=== PATIENT | female | born 1955 | race Caucasian/White ===

== ENCOUNTER 2016-11-10 23:32 | Emergency (ER) | payer OTHER ==
[~2016-11-10] VITALS: Ht 165.1 cm; Wt 68.0 kg
[2016-11-11] MEDS ORDERED: diphenhydrAMINE 50 MG CAPSULE PO ONE (01:15)
[2016-11-11] MEDS ORDERED: diphenhydrAMINE 50 MG CAPSULE ONE (01:18)
--- NOTE | 2016-11-11 01:18 | NUR ---
Patient discharged to home in stable conditon. Written and verbal after care instructions given. Patient verbalizes understanding of instructions.
== END 2016-11-11 01:18 | disposition home or self-care (01) ==
LOC: ER 23:33
DX: S40.862A Insect bite (nonvenomous) of left upper arm, initial encounter (principal); S30.861A Insect bite (nonvenomous) of abdominal wall, initial encounter; F10.20 Alcohol dependence, uncomplicated; F41.9 Anxiety disorder, unspecified; F32.9 Major depressive disorder, single episode, unspecified; E78.5 Hyperlipidemia, unspecified; Z88.0 Allergy status to penicillin; Z88.8 Allergy status to other drugs, medicaments and biological substances; W57.XXXA Bitten or stung by nonvenomous insect and other nonvenomous arthropods, initial encounter; Y93.89 Activity, other specified; Y92.89 Other specified places as the place of occurrence of the external cause; Y99.8 Other external cause status
CPT/HCPCS: A4663; Q0163

== ENCOUNTER 2017-07-16 20:04 | Emergency (ER) | payer OTHER, MEDICAID ==
[~2017-07-16] VITALS: Ht 162.6 cm; Wt 70.8 kg
--- NOTE | 2017-07-16 20:24 | NUR ---
Patient ambulated to ER with c/o headache, reports feeling it at the top of her head more, random occurence. Pt states sometimes she is anxious, and she would feel headache and sometimes pain on the neck. Denies chest pain, dizziness, nausea, vomiting.
--- NOTE | 2017-07-16 20:35 | NUR ---
Dr. Henry at bedside for MSE.
[2017-07-16 21:06] LABS: *BILIRUBIN,URIN NEGATIVE (NEGATIVE); *BLOOD, URINE NEGATIVE (NEGATIVE); *CLARITY,URINE CLEAR (CLEAR); *KETONES,URINE NEGATIVE (NEGATIVE); *PROTEIN,URINE NEGATIVE (NEGATIVE); *UROBILINOGEN,URINE 0.2 E.U./dl (NORMAL); LEUKOCYTE ESTERASE ,URINE NEGATIVE (NEGATIVE); NITRITE, URINE NEGATIVE (NEGATIVE); PH,URINE 6.5 (5.0-8.0); UGLUCOSE NEGATIVE (NEGATIVE)
[2017-07-16 21:08] LABS: BASOPHILS # (AUTO) 0.1 K/uL (0.0-8.0); BASOPHILS % (AUTO) 0.9 % (0.0-2.0); EOSINOPHILS # (AUTO) 0.1 K/uL (0.0-0.7); EOSINOPHILS % (AUTO) 0.8 % (0.0-7.0); HEMATOCRIT 43.8 % (31.2-41.9); HEMOGLOBIN 14.9 g/dL (10.9-14.3); LYMPHOCYTES # (AUTO) 3.3 K/uL (20.0-40.0); LYMPHOCYTES % (AUTO) 43.5 % (20.5-51.5); MEAN CORPUSCULAR HEMOGLOBIN 28.9 uug (24.7-32.8); MEAN CORPUSCULAR HGB CONC 34 g/dL (32.3-35.6); MONOCYTES # (AUTO) 0.6 K/uL (2.0-10.0); MONOCYTES % (AUTO) 8.1 % (0.0-11.0); NEUTROPHILS # (AUTO) 3.5 K/uL (1.8-8.9); NEUTROPHILS % (AUTO) 46.7 % (38.5-71.5); PLATELET COUNT (AUTO) 307 K/uL (179-408); RED BLOOD CELL COUNT(AUTO) 5.16 MIL/uL (3.63-4.92); WHITE BLOOD COUNT (AUTO) 7.5 K/uL (3.8-11.8)
--- NOTE | 2017-07-16 21:13 | NUR ---
Patient out of ER for CT via gurney.
[2017-07-16 21:15] LABS: CREATININE 0.8 mg/dL (0.6-1.3)
[2017-07-16 21:20] LABS: *COLOR,URINE STRAW (YELLOW)
[2017-07-16 21:21] LABS: WBC,URINE NONE SEEN /HPF (0-3)
--- NOTE | 2017-07-16 21:22 | NUR ---
Patient back to ER from [place] via [facility].
[2017-07-16 21:27] LABS: BILIRUBIN,DIRECT 0.1 mg/dL (0.0-0.2); BILIRUBIN,TOTAL 0.6 mg/dL (0.2-1.0); TOTAL PROTEIN, SERUM 7.9 g/dL (6.4-8.2)
--- NOTE | 2017-07-16 22:13 | NUR ---
Patient discharged to home in stable conditon. Written and verbal after care instructions given. Patient verbalizes understanding of instructions. Patient ambulated out of ER with steady gait, no acute signs of distress, VSS, all belongings taken.
[2017-07-16 22:16] VITALS: BP 134/74
== END 2017-07-16 22:17 | disposition home or self-care (01) ==
LOC: ER 20:04
DX: R51 Headache (principal); E78.5 Hyperlipidemia, unspecified; Z88.0 Allergy status to penicillin; Z88.8 Allergy status to other drugs, medicaments and biological substances; Z91.048 Other nonmedicinal substance allergy status
CPT/HCPCS: 36415; 70030-TC; 70450; 71045; 85025; 85730; 93005; A4663

== ENCOUNTER 2018-04-11 00:19 | Emergency (ER) | payer MEDICAID, OTHER ==
[~2018-04-11] VITALS: Ht 165.1 cm; Wt 68.0 kg
--- NOTE | 2018-04-11 00:36 | NUR ---
Pt. ambulated into ED w/ w/ LLQ abdominal pain, nausea, diarrhea x 6 today, states she went to her Dr. last week and was prescriped Ciprofloxacin for gastroenteritis but was unable to tolerate medication, A/Ox4, denies CP/MCKNIGHT/F/SOB,
[2018-04-11] MEDS ORDERED: DIPHENOXYLATE HCL/ATROP SULF TABLET PO ONE (00:45)
[2018-04-11] MEDS ORDERED: DICYCLOMINE HCL 10 MG/5 ML UDC LIQ PO ONE (00:45)
[2018-04-11] MEDS ORDERED: ONDANSETRON ODT 4 MG TAB.RAPDIS SL ONE (00:45)
[2018-04-11] MEDS ORDERED: ONDANSETRON HCL 4 MG TABLET ONE (00:52)
[2018-04-11] MEDS ORDERED: DIPHENOXYLATE HCL/ATROP SULF TABLET ONE (00:52)
[2018-04-11] MEDS ORDERED: DICYCLOMINE HCL 10 MG/5 ML UDC LIQ ONE (00:52)
[2018-04-11] MEDS ORDERED: ONDANSETRON ODT 4 MG TAB.RAPDIS ONE (00:55)
--- NOTE | 2018-04-11 02:05 | NUR ---
Patient discharged to home in stable conditon. Written and verbal after care instructions given. Patient verbalizes understanding of instructions. Pt. d/c per MD orders, d/c papers signed, all belongings w/ pt., left in private vehicle w/ , no acute distress,
== END 2018-04-11 02:08 | disposition home or self-care (01) ==
LOC: ER 00:20
DX: R11.0 Nausea (principal); R19.7 Diarrhea, unspecified; E78.5 Hyperlipidemia, unspecified; Z88.0 Allergy status to penicillin; Z88.8 Allergy status to other drugs, medicaments and biological substances; Z91.09 Other allergy status, other than to drugs and biological substances
CPT/HCPCS: A4663; Q0162

== ENCOUNTER 2018-05-04 20:56 | Emergency (ER) | payer OTHER ==
[~2018-05-04] VITALS: Ht 165.1 cm; Wt 71.2 kg
[2018-05-04] MEDS ORDERED: ATOR40TA PO (21:13)
[2018-05-04 21:24] LABS: BASOPHILS # (AUTO) 0.1 K/uL (0.0-8.0); BASOPHILS % (AUTO) 0.9 % (0.0-2.0); EOSINOPHILS # (AUTO) 0.1 K/uL (0.0-0.7); EOSINOPHILS % (AUTO) 1.3 % (0.0-7.0); HEMATOCRIT 41.7 % (31.2-41.9); HEMOGLOBIN 14.5 g/dL (10.9-14.3); LYMPHOCYTES # (AUTO) 3.1 K/uL (20.0-40.0); LYMPHOCYTES % (AUTO) 37.7 % (20.5-51.5); MEAN CORPUSCULAR HEMOGLOBIN 29.4 uug (24.7-32.8); MEAN CORPUSCULAR HGB CONC 35 g/dL (32.3-35.6); MEAN CORPUSCULAR VOLUME 84.3 fL (75.5-95.3); MONOCYTES # (AUTO) 0.7 K/uL (2.0-10.0); MONOCYTES % (AUTO) 8.5 % (0.0-11.0); NEUTROPHILS # (AUTO) 4.3 K/uL (1.8-8.9); NEUTROPHILS % (AUTO) 51.6 % (38.5-71.5); PLATELET COUNT (AUTO) 288 K/uL (179-408); RED BLOOD CELL COUNT(AUTO) 4.94 MIL/uL (3.63-4.92); WHITE BLOOD COUNT (AUTO) 8.2 K/uL (3.8-11.8)
[2018-05-04 21:32] LABS: CREATININE 0.9 mg/dL (0.6-1.3); POTASSIUM 3.8 mmol/L (3.5-5.1)
[2018-05-04 21:43] LABS: BILIRUBIN,DIRECT 0.1 mg/dL (0.0-0.2); BILIRUBIN,TOTAL 0.5 mg/dL (0.2-1.0); TOTAL PROTEIN, SERUM 7.8 g/dL (6.4-8.2)
--- NOTE | 2018-05-04 23:00 | NUR ---
Spoke with ER MD regarding POC. Per ER MD, awaiting second troponin to be drawn.
--- NOTE | 2018-05-05 01:29 | NUR ---
IV removed. Catheter intact and site benign. Pressure and 4x4 gauze applied to site. No bleeding noted.Patient discharged to home in stable conditon. Written and verbal after care instructions given. Patient verbalizes understanding of instructions.
[2018-05-05 01:31] VITALS: BP 134/76
== END 2018-05-05 01:32 | disposition home or self-care (01) ==
LOC: ER 20:57
DX: R07.9 Chest pain, unspecified (principal); E78.5 Hyperlipidemia, unspecified; Z88.8 Allergy status to other drugs, medicaments and biological substances; Z91.018 Allergy to other foods; Z91.048 Other nonmedicinal substance allergy status; Z79.899 Other long term (current) drug therapy
CPT/HCPCS: 36415; 70030-TC; 71045; 85025; 85730; 93005; A4663

== ENCOUNTER 2018-06-29 19:37 | Emergency (ER) | payer MEDICAID, OTHER ==
[~2018-06-29] VITALS: Ht 157.5 cm; Wt 63.5 kg
[~2018-06-29 19:37] MED LIST: ATOR40TA PO
--- NOTE | 2018-06-29 20:04 | NUR ---
PT A/OX4, PRESENTS TO THE ER C/O COUGH X 3 MONTHS. PT REPORTS NON-PRODUCTIVE, DRY COUGH. VSS, AFEBRILE. PT REPORTS RIB PAIN THAT STARTED 3 MONTHS AGO, PROVOKED BY COUGHING, ACHING IN QUALITY, DOES NOT RADIATE, 4/10, CONSTANT. PT DENIES C/P, SOB, N/V/D, DIZZINESS, HEADACHE.
[2018-06-29 21:02] VITALS: BP 128/82
--- NOTE | 2018-06-29 21:03 | NUR ---
Patient discharged to home in stable conditon. Written and verbal after care instructions given. Patient verbalizes understanding of instructions. PT D/C W/ PRESCRIPTIONS. ALL BELONGINGS W/ PT. PT SELF-AMBULATED W/O DIFFICULTY.
== END 2018-06-29 21:04 | disposition home or self-care (01) ==
LOC: ER 19:37
DX: J40 Bronchitis, not specified as acute or chronic (principal); E78.5 Hyperlipidemia, unspecified; F17.200 Nicotine dependence, unspecified, uncomplicated; Z88.0 Allergy status to penicillin; Z88.8 Allergy status to other drugs, medicaments and biological substances; Z79.899 Other long term (current) drug therapy
CPT/HCPCS: A4663

== ENCOUNTER 2018-12-27 20:42 | Emergency (ER) | payer MEDICAID ==
[~2018-12-27] VITALS: Ht 162.6 cm; Wt 65.8 kg
--- NOTE | 2018-12-27 21:30 | NUR ---
Patient was triaged but left without being seen by RASHARD
== END 2018-12-27 21:30 | disposition left against medical advice (07) ==
LOC: ER 20:46
DX: Z53.21 Procedure and treatment not carried out due to patient leaving prior to being seen by health care provider (principal)
CPT/HCPCS: A4663

== ENCOUNTER 2019-04-10 03:45 | Emergency (ER) | payer MEDICAID ==
[~2019-04-10] VITALS: Ht 165.1 cm; Wt 65.8 kg
--- NOTE | 2019-04-10 04:24 | NUR ---
MD AT BEDSIDE FOR HX AND PHYSICAL
--- NOTE | 2019-04-10 04:30 | NUR ---
PT AIRWAY PATENT FR HOME, ABLE TO SPEAK CLEAR AND COMPLETE SENTENCES C/O FEVER, +COUGH, ABD PAIN AND NAUSEA +GEN MALAISE X 2DAYS PT STATES SHE OBSERVED THAT PEOPLE AT WORKPLACE HAD THE SAME SYMPTOMS DENIES RECENT TRAVELS PT DENIES VOMITING NOR [place] NO SOB DENIES SMOKING, DENIES RECREATIONAL DRUG USE MONIORED ACCORDINGLY KEPT WARM DRY AND COMFORTABLE
[2019-04-10 05:58] VITALS: BP 129/79
--- NOTE | 2019-04-10 05:58 | NUR ---
Patient discharged to home in stable conditon. Written and verbal after care instructions given. Patient verbalizes understanding of instructions. ambulatory w/ stable gait all belongings w/ pt
== END 2019-04-10 05:59 | disposition home or self-care (01) ==
LOC: ER 03:46
DX: R51 Headache (principal); R05 Cough; R11.2 Nausea with vomiting, unspecified; R19.7 Diarrhea, unspecified; R50.9 Fever, unspecified; E78.5 Hyperlipidemia, unspecified; Z88.8 Allergy status to other drugs, medicaments and biological substances; Z88.0 Allergy status to penicillin; Z79.899 Other long term (current) drug therapy
CPT/HCPCS: 87400; A4663

== ENCOUNTER 2019-05-27 12:12 | Emergency (ER) | payer MEDICAID ==
[~2019-05-27] VITALS: Ht 162.6 cm; Wt 65.8 kg
--- NOTE | 2019-05-27 12:43 | NUR ---
ERMD at bedside for MSE
--- NOTE | 2019-05-27 12:55 | NUR ---
Patient discharged to home in stable conditon. Written and verbal after care instructions given. Patient verbalizes understanding of instructions. Patient ambulated with stable gait.
[2019-05-27 12:56] VITALS: BP 121/66
== END 2019-05-27 12:57 | disposition home or self-care (01) ==
LOC: ER 12:12
DX: J32.9 Chronic sinusitis, unspecified (principal); F41.9 Anxiety disorder, unspecified; E78.5 Hyperlipidemia, unspecified; Z88.0 Allergy status to penicillin; Z88.8 Allergy status to other drugs, medicaments and biological substances; Z79.899 Other long term (current) drug therapy
CPT/HCPCS: A4663

== ENCOUNTER 2020-12-01 12:17 | Emergency (ER) | payer MEDICAID ==
[~2020-12-01] VITALS: Ht 165.1 cm; Wt 70.8 kg
[2020-12-01] MEDS ORDERED: DEXAMETHASONE SOD PHOSPHATE 4 MG INJ ONE (13:30)
[2020-12-01] MEDS ORDERED: DEXAMETHASONE SOD PHOSPHATE 4 MG INJ IM ONE (13:30)
[2020-12-01] MEDS ORDERED: IBUPROFEN 800 MG TABLET ONE (13:30)
[2020-12-01] MEDS ORDERED: DEXAMETHASONE SOD PHOSPHATE 10 MG INJ ONE (13:30)
[2020-12-01] MEDS ORDERED: IBUPROFEN 800 MG TABLET PO ONE (13:30)
[2020-12-01] MEDS ORDERED: levoFLOXacin 750 MG TABLET PO ONE (14:15)
[2020-12-01] MEDS ORDERED: PROM5SYR PO (14:16)
[2020-12-01] MEDS ORDERED: IBUP-1957 PO (14:16)
[2020-12-01] MEDS ORDERED: LEVO750T46 PO (14:16)
[2020-12-01] MEDS ORDERED: BENZ200C53 PO (14:16)
[2020-12-01] MEDS ORDERED: ALBU8HFA4 INH (14:16)
--- NOTE | 2020-12-01 14:39 | NUR ---
Patient discharged to home in stable condition with brisk steady gait. Written and verbal after care instructions given to patient in [place]. Patient verbalized understanding & compliance of instructions. Stressed follow up with primary doctor or return to ER for worsening s/s.
[2020-12-01] MEDS ORDERED: levoFLOXacin 750 MG TABLET ONE (14:40)
== END 2020-12-01 14:43 | disposition home or self-care (01) ==
LOC: ER 12:17
DX: J20.9 Acute bronchitis, unspecified (principal); J02.9 Acute pharyngitis, unspecified; J34.89 Other specified disorders of nose and nasal sinuses; Z88.0 Allergy status to penicillin; Z91.018 Allergy to other foods; E78.5 Hyperlipidemia, unspecified; Z79.899 Other long term (current) drug therapy
CPT/HCPCS: 71045; 86403; 87070; 96372; 99284; J1100 ×2; A4663

== ENCOUNTER 2020-12-04 14:39 | Emergency (ER) | payer MEDICAID ==
[~2020-12-04] VITALS: Ht 165.1 cm; Wt 70.8 kg
[~2020-12-04 14:39] MED LIST changes: +ALBU8HFA4 INH; +BENZ200C53 PO; +IBUP-1957 PO; +LEVO750T46 PO; +PROM5SYR PO
--- NOTE | 2020-12-04 16:25 | NUR ---
Patient discharged to home in stable condition. Written and verbal after care instructions given. Patient verbalizes understanding of instructions. Stressed follow up or return to ER for worsening s/s.
== END 2020-12-04 16:26 | disposition home or self-care (01) ==
LOC: ER 14:39
DX: R51.9 Headache, unspecified (principal); R68.2 Dry mouth, unspecified; M79.89 Other specified soft tissue disorders; T36.8X5A Adverse effect of other systemic antibiotics, initial encounter; Y92.019 Unspecified place in single-family (private) house as the place of occurrence of the external cause; J20.9 Acute bronchitis, unspecified; Z88.0 Allergy status to penicillin; Z88.8 Allergy status to other drugs, medicaments and biological substances; E78.5 Hyperlipidemia, unspecified
CPT/HCPCS: A4663

== ENCOUNTER 2021-02-01 19:53 | Emergency (ER) | payer MEDICAID ==
[~2021-02-01] VITALS: Ht 157.5 cm; Wt 67.1 kg
[2021-02-01] MEDS ORDERED: FLUORESCEIN SODIUM 1 MG STRIP OP ONE (20:15)
[2021-02-01] MEDS ORDERED: TETRACAINE HCL 0.5% OPHT DROP 2 ML BOTTLE OP ONE (20:15)
[2021-02-01] MEDS ORDERED: TETRACAINE HCL 0.5% OPHT DROP 2 ML BOTTLE ONE (20:20)
[2021-02-01] MEDS ORDERED: FLUORESCEIN SODIUM 1 MG STRIP ONE (20:20)
--- NOTE | 2021-02-01 20:34 | NUR ---
Dr. Presley at bedside for MSE.
[2021-02-01 21:04] VITALS: BP 137/85
== END 2021-02-01 21:04 | disposition home or self-care (01) ==
LOC: ER 19:53
DX: H11.31 Conjunctival hemorrhage, right eye (principal); E78.5 Hyperlipidemia, unspecified; Z88.1 Allergy status to other antibiotic agents; Z88.0 Allergy status to penicillin; Z79.899 Other long term (current) drug therapy
CPT/HCPCS: A4663

== ENCOUNTER 2022-05-24 17:18 | Emergency (ER) | payer MEDICAID ==
[~2022-05-24] VITALS: Ht 157.5 cm; Wt 68.0 kg
--- NOTE | 2022-05-24 18:56 | NUR ---
Dr. Denson at bedside. MSE in progress.
[2022-05-24] MEDS ORDERED: ALBUTEROL SULFATE 2.5 MG/3 ML NEBU NEB ONE (19:15)
[2022-05-24] MEDS ORDERED: IPRATROPIUM BROMIDE 0.5 MG/2.5 ML NEBU NEB ONE (19:15)
[2022-05-24] MEDS ORDERED: IPRATROPIUM BROMIDE 0.5 MG/2.5 ML NEBU ONE (19:29)
[2022-05-24] MEDS ORDERED: ALBUTEROL SULFATE 2.5 MG/3 ML NEBU ONE (19:29)
[2022-05-24] MEDS ORDERED: ALBUTEROL SULFATE 8 GM HFA.AER.AD IH PRN (20:00)
[2022-05-24] MEDS ORDERED: ALBUTEROL SULFATE 8 GM HFA.AER.AD ONE (20:08)
[2022-05-24] MEDS ORDERED: ALBU6.7H9 INH (20:19)
[2022-05-24] MEDS ORDERED: HYDR-3972 PO (20:19)
[2022-05-24 20:51] VITALS: BP 118/75
== END 2022-05-24 20:52 | disposition home or self-care (01) ==
LOC: ER 17:18
DX: J21.9 Acute bronchiolitis, unspecified (principal); J06.9 Acute upper respiratory infection, unspecified; B97.89 Other viral agents as the cause of diseases classified elsewhere; Z88.1 Allergy status to other antibiotic agents; Z88.0 Allergy status to penicillin; Z88.8 Allergy status to other drugs, medicaments and biological substances; Z91.048 Other nonmedicinal substance allergy status; E78.5 Hyperlipidemia, unspecified; Z79.899 Other long term (current) drug therapy
CPT/HCPCS: 94640; A4663; J3535; J3590

== ENCOUNTER 2023-06-05 20:59 | Emergency (ER) | payer MEDICARE, OTHER ==
[~2023-06-05] VITALS: Ht 157.5 cm; Wt 62.6 kg
[~2023-06-05 20:59] MED LIST changes: +ALBU6.7H9 INH; +HYDR-3972 PO; +LORA0.5T48 PO
[2023-06-05 22:46] LABS: BASOPHILS # (AUTO) 0.1 K/UL (0.0-0.2); BASOPHILS % (AUTO) 2.2 % (0.0-2.0); EOSINOPHILS # (AUTO) 0.1 K/uL (0.0-0.7); EOSINOPHILS % (AUTO) 1.5 % (0.0-7.0); HEMATOCRIT 41.1 % (31.2-41.9); HEMOGLOBIN 13.7 g/dL (10.9-14.3); LYMPHOCYTES # (AUTO) 1.9 K/uL (0.8-4.8); LYMPHOCYTES % (AUTO) 29.6 % (20.5-51.5); MEAN CORPUSCULAR HEMOGLOBIN 28.7 uug (24.7-32.8); MEAN CORPUSCULAR HGB CONC 33 g/dL (32.3-35.6); MEAN CORPUSCULAR VOLUME 86.1 fL (75.5-95.3); MONOCYTES # (AUTO) 0.5 K/uL (0.1-1.30); MONOCYTES % (AUTO) 7.7 % (0.0-11.0); NEUTROPHILS # (AUTO) 3.8 K/uL (1.8-8.9); PLATELET COUNT (AUTO) 260 K/uL (179-408); RED BLOOD CELL COUNT(AUTO) 4.78 MIL/uL (3.63-4.92); RED CELL DISTRIBUTION WIDTH 14.5 % (12.3-17.7); WHITE BLOOD COUNT (AUTO) 6.5 K/uL (3.8-11.8)
[2023-06-05 22:55] LABS: CALCIUM 9.3 mg/dL (8.5-10.1); CARBON DIOXIDE 27 mmol/L (21-32); CHLORIDE 101 mmol/L (98-107); CREATININE 0.8 mg/dL (0.6-1.3); GLUCOSE 112 mg/dL (74-106); POTASSIUM 4.5 mmol/L (3.5-5.1); SODIUM SERUM 136 mmol/L (136-145); UREA NITROGEN, BLOOD 12 mg/dL (7-18)
[2023-06-05 23:12] LABS: ALANINE AMINOTRANSFERASE 42 U/L (14-59); ALBUMIN 3.5 g/dL (3.4-5.0); ALKALINE PHOSPHATASE 114 U/L (50-136); ASPARTATE AMINOTRANSFERASE 28 U/L (15-37); BILIRUBIN,DIRECT 0.2 mg/dL (0.0-0.2); BILIRUBIN,TOTAL 0.6 mg/dL (0.2-1.0); NT-PRO BNP 93 pg/mL (0-125); TOTAL PROTEIN, SERUM 7.1 g/dL (6.4-8.2)
[2023-06-06] MEDS ORDERED: HYDR12.55 PO (00:09)
[2023-06-06 00:22] VITALS: BP 145/81; O2SAT 100
== END 2023-06-06 00:22 | disposition home or self-care (01) ==
LOC: ER 21:01
DX: I10 Essential (primary) hypertension (principal); R41.9 Unspecified symptoms and signs involving cognitive functions and awareness; R07.89 Other chest pain; J40 Bronchitis, not specified as acute or chronic; F41.9 Anxiety disorder, unspecified; E78.5 Hyperlipidemia, unspecified; Z98.890 Other specified postprocedural states; Z79.899 Other long term (current) drug therapy; Z88.1 Allergy status to other antibiotic agents
CPT/HCPCS: 36415; 71045; 84484; 85025; 85730; 93005; A4606; A4663

== ENCOUNTER 2023-11-14 20:30 | Emergency (ER) | payer MEDICARE, OTHER ==
[~2023-11-14] VITALS: Ht 165.1 cm; Wt 62.1 kg
[~2023-11-14 20:30] MED LIST changes: +HYDR12.55 PO
[2023-11-14] MEDS ORDERED: diphenhydrAMINE 25 MG CAP PO ONE (21:31)
[2023-11-14] MEDS ORDERED: CEphaleXIN 500 MG CAPSULE ONE (21:31)
[2023-11-14] MEDS ORDERED: CEPH500C2 PO (21:35)
[2023-11-14] MEDS: diphenhydrAMINE 25 MG CAP PO ONE (21:37)
[2023-11-14] MEDS: CEphaleXIN 500 MG CAPSULE PO ONE (21:37)
[2023-11-14 22:46] VITALS: BP 111/78; O2SAT 99
== END 2023-11-14 22:47 | disposition home or self-care (01) ==
LOC: ER 20:33
DX: L03.113 Cellulitis of right upper limb (principal); J40 Bronchitis, not specified as acute or chronic; E78.5 Hyperlipidemia, unspecified; Z79.899 Other long term (current) drug therapy; Z79.51 Long term (current) use of inhaled steroids; Z79.891 Long term (current) use of opiate analgesic; Z88.2 Allergy status to sulfonamides; Z88.8 Allergy status to other drugs, medicaments and biological substances; Z88.0 Allergy status to penicillin
CPT/HCPCS: 99283; Q0163; A4606; A4663

== ENCOUNTER 2023-11-30 06:16 | Emergency (ER) | payer MEDICARE, OTHER ==
[~2023-11-30] VITALS: Ht 165.1 cm; Wt 61.2 kg
[~2023-11-30 06:16] MED LIST changes: +CEPH500C2 PO
[2023-11-30] MEDS ORDERED: CARV6.252 PO (06:36)
[2023-11-30] MEDS ORDERED: HYDROMORPHONE 1 MG/1 ML DISP.SYRIN ONE (07:02)
[2023-11-30] MEDS ORDERED: ONDANSETRON 4 MG/2 ML VIAL ONE (07:02)
[2023-11-30] MEDS: ONDANSETRON 4 MG/2 ML VIAL IV ONE (07:12)
[2023-11-30] MEDS: IV NORMAL SALINE 1000 ML BAG IV ONE (07:12)
[2023-11-30 07:13] LABS: BASOPHILS % (AUTO) 0.9 % (0.0-2.0); DIFFERENTIAL COMMENT 1; EOSINOPHILS # (AUTO) 0.1 K/uL (0.0-0.7); EOSINOPHILS % (AUTO) 1.6 % (0.0-7.0); HEMATOCRIT 42.8 % (31.2-41.9); HEMOGLOBIN 14.1 g/dL (10.9-14.3); LYMPHOCYTES # (AUTO) 2.1 K/uL (0.8-4.8); LYMPHOCYTES % (AUTO) 39.4 % (20.5-51.5); MEAN CORPUSCULAR HEMOGLOBIN 28.6 uug (24.7-32.8); MEAN CORPUSCULAR HGB CONC 33 g/dL (32.3-35.6); MONOCYTES # (AUTO) 0.6 K/uL (0.1-1.30); NEUTROPHILS # (AUTO) 2.5 K/uL (1.8-8.9); NEUTROPHILS % (AUTO) 47.1 % (38.5-71.5); PLATELET COUNT (AUTO) 253 K/uL (179-408); RED BLOOD CELL COUNT(AUTO) 4.92 MIL/uL (3.63-4.92); RED CELL DISTRIBUTION WIDTH 13.3 % (12.3-17.7); WHITE BLOOD COUNT (AUTO) 5.3 K/uL (3.8-11.8)
[2023-11-30] MEDS: HYDROMORPHONE 1 MG/1 ML DISP.SYRIN IV ONE (07:13)
[2023-11-30 07:23] LABS: CALCIUM 8.4 mg/dL (8.5-10.1); CREATININE 0.7 mg/dL (0.6-1.3); POTASSIUM 3.7 mmol/L (3.5-5.1)
[2023-11-30 07:29] LABS: ALBUMIN 3.1 g/dL (3.4-5.0); BILIRUBIN,DIRECT 0.1 mg/dL (0.0-0.2); BILIRUBIN,TOTAL 0.4 mg/dL (0.2-1.0); TOTAL PROTEIN, SERUM 6.4 g/dL (6.4-8.2)
[2023-11-30 08:16] LABS: *BILIRUBIN,URIN NEGATIVE (NEGATIVE); *BLOOD, URINE NEGATIVE (NEGATIVE); *CLARITY,URINE CLEAR (CLEAR); *COLOR,URINE YELLOW (YELLOW); *KETONES,URINE NEGATIVE (NEGATIVE); *PROTEIN,URINE NEGATIVE (NEGATIVE); *UROBILINOGEN,URINE 0.2 E.U./dl (NORMAL); LEUKOCYTE ESTERASE ,URINE NEGATIVE (NEGATIVE); NITRITE, URINE NEGATIVE (NEGATIVE); PH,URINE 6.5 (5.0-8.0); UGLUCOSE NEGATIVE (NEGATIVE)
[2023-11-30] MEDS ORDERED: ACET1TAB23 PO (08:36)
[2023-11-30] MEDS ORDERED: AZIT500T4 PO (08:36)
[2023-11-30] MEDS ORDERED: ONDA4TAB5 PO (08:36)
[2023-11-30 08:54] VITALS: BP 121/71; O2SAT 98
== END 2023-11-30 08:55 | disposition home or self-care (01) ==
LOC: ER 06:21
DX: K52.9 Noninfective gastroenteritis and colitis, unspecified (principal); E83.51 Hypocalcemia; E46 Unspecified protein-calorie malnutrition; J40 Bronchitis, not specified as acute or chronic; E78.5 Hyperlipidemia, unspecified; Z79.1 Long term (current) use of non-steroidal anti-inflammatories (NSAID); Z79.891 Long term (current) use of opiate analgesic; Z98.890 Other specified postprocedural states; Z79.899 Other long term (current) drug therapy; Z68.22 Body mass index [BMI] 22.0-22.9, adult; Z88.1 Allergy status to other antibiotic agents; Z88.0 Allergy status to penicillin
CPT/HCPCS: 99284; 74176; 96360; 80076; 80048; 81003; 85025; 36415; J7040; A4606; A4663; J1170; J2405

== ENCOUNTER 2023-12-23 22:51 | Emergency (ER) | payer MEDICARE, OTHER ==
[~2023-12-23] VITALS: Ht 165.1 cm; Wt 63.5 kg
[~2023-12-23 22:51] MED LIST changes: +ACET1TAB23 PO; -ALBU6.7H9 INH; -ALBU8HFA4 INH; -ATOR40TA PO; +AZIT500T4 PO; -BENZ200C53 PO; +CARV6.252 PO; -CEPH500C2 PO; -HYDR-3972 PO; -HYDR12.55 PO; -IBUP-1957 PO; -LEVO750T46 PO; -LORA0.5T48 PO; +ONDA4TAB5 PO; -PROM5SYR PO
[2023-12-23 23:47] LABS: BASOPHILS # (AUTO) 0.1 K/UL (0.0-0.2); BASOPHILS % (AUTO) 0.8 % (0.0-2.0); EOSINOPHILS # (AUTO) 0.1 K/uL (0.0-0.7); EOSINOPHILS % (AUTO) 1.9 % (0.0-7.0); HEMATOCRIT 39.7 % (31.2-41.9); HEMOGLOBIN 13.1 g/dL (10.9-14.3); LYMPHOCYTES # (AUTO) 2.7 K/uL (0.8-4.8); LYMPHOCYTES % (AUTO) 35.7 % (20.5-51.5); MEAN CORPUSCULAR HEMOGLOBIN 28.5 uug (24.7-32.8); MEAN CORPUSCULAR HGB CONC 33 g/dL (32.3-35.6); MEAN CORPUSCULAR VOLUME 86.4 fL (75.5-95.3); MONOCYTES # (AUTO) 0.7 K/uL (0.1-1.30); MONOCYTES % (AUTO) 8.8 % (0.0-11.0); NEUTROPHILS % (AUTO) 52.8 % (38.5-71.5); PLATELET COUNT (AUTO) 240 K/uL (179-408); RED CELL DISTRIBUTION WIDTH 13.5 % (12.3-17.7); WHITE BLOOD COUNT (AUTO) 7.6 K/uL (3.8-11.8)
[2023-12-23 23:59] LABS: CALCIUM 8.6 mg/dL (8.5-10.1); CREATININE 0.7 mg/dL (0.6-1.3); POTASSIUM 3.9 mmol/L (3.5-5.1)
[2023-12-24] MEDS: IV NORMAL SALINE 500 ML BAG IV ONE ×2 (00:03→02:11)
[2023-12-24 00:04] LABS: ALBUMIN 3.5 g/dL (3.4-5.0); BILIRUBIN,DIRECT 0.1 mg/dL (0.0-0.2); BILIRUBIN,TOTAL 0.6 mg/dL (0.2-1.0); TOTAL PROTEIN, SERUM 6.8 g/dL (6.4-8.2)
[2023-12-24 00:10] LABS: NT-PRO BNP 61 pg/mL (0-125)
[2023-12-24 00:19] LABS: DIFFERENTIAL COMMENT 1
[2023-12-24] MEDS: METOCLOPRAMIDE HCL 10 MG/2 ML VIAL IV ONE (01:00)
[2023-12-24] MEDS: CLONIDINE HCL 0.1 MG TABLET PO ONE (01:00)
[2023-12-24] MEDS: diphenhydrAMINE 50 MG/1 ML VIAL IV ONE (01:00)
[2023-12-24] MEDS ORDERED: METOCLOPRAMIDE HCL 10 MG/2 ML VIAL ONE (01:02)
[2023-12-24] MEDS ORDERED: CLONIDINE HCL 0.1 MG TABLET ONE (01:02)
[2023-12-24] MEDS ORDERED: diphenhydrAMINE 50 MG/1 ML VIAL ONE (01:02)
[2023-12-24 01:47] LABS: CALCIUM 8.5 mg/dL (8.5-10.1); CREATININE 0.7 mg/dL (0.6-1.3); POTASSIUM 3.9 mmol/L (3.5-5.1)
[2023-12-24 03:16] VITALS: BP 126/77; TEMP 98; O2SAT 98
== END 2023-12-24 03:16 | disposition home or self-care (01) ==
LOC: ER 22:52
DX: I10 Essential (primary) hypertension (principal); R19.7 Diarrhea, unspecified; E87.1 Hypo-osmolality and hyponatremia; J40 Bronchitis, not specified as acute or chronic; E78.5 Hyperlipidemia, unspecified; Z79.1 Long term (current) use of non-steroidal anti-inflammatories (NSAID); Z98.890 Other specified postprocedural states; Z79.899 Other long term (current) drug therapy; Z88.8 Allergy status to other drugs, medicaments and biological substances; Z88.0 Allergy status to penicillin; Z88.1 Allergy status to other antibiotic agents
CPT/HCPCS: 36415; 71045; 84484; 85025; 93005; A4606; A4663; J1200; J2765; J7040

== ENCOUNTER 2024-09-18 16:55 | Emergency (ER) | payer MEDICARE, OTHER ==
[~2024-09-18] VITALS: Ht 165.1 cm; Wt 65.3 kg
[2024-09-18] MEDS ORDERED: BISM262O28 PO (17:08)
[2024-09-18] MEDS: IV NORMAL SALINE 1000 ML BAG IV ONE (17:11)
[2024-09-18 17:26] LABS: *BILIRUBIN,URIN NEGATIVE (NEGATIVE); *CLARITY,URINE CLEAR (CLEAR); *KETONES,URINE NEGATIVE (NEGATIVE); *PROTEIN,URINE NEGATIVE (NEGATIVE); *UROBILINOGEN,URINE 0.2 E.U./dl (NORMAL); LEUKOCYTE ESTERASE ,URINE NEGATIVE (NEGATIVE); NITRITE, URINE NEGATIVE (NEGATIVE); UGLUCOSE NEGATIVE (NEGATIVE)
[2024-09-18] MEDS ORDERED: METOCLOPRAMIDE HCL 10 MG/2 ML VIAL ONE (17:26)
[2024-09-18] MEDS ORDERED: FAMOTIDINE. 20 MG/2 ML VIAL IV ONE (17:26)
[2024-09-18 17:27] LABS: BASOPHILS % (AUTO) 0.8 % (0.0-2.0); EOSINOPHILS # (AUTO) 0.1 K/uL (0.0-0.7); EOSINOPHILS % (AUTO) 1.5 % (0.0-7.0); HEMOGLOBIN 13.8 g/dL (10.9-14.3); LYMPHOCYTES # (AUTO) 1.8 K/uL (0.8-4.8); LYMPHOCYTES % (AUTO) 28.4 % (20.5-51.5); MEAN CORPUSCULAR HEMOGLOBIN 29.2 uug (24.7-32.8); MEAN CORPUSCULAR HGB CONC 34 g/dL (32.3-35.6); MEAN CORPUSCULAR VOLUME 86.8 fL (75.5-95.3); MONOCYTES # (AUTO) 0.7 K/uL (0.1-1.30); MONOCYTES % (AUTO) 11.3 % (0.0-11.0); NEUTROPHILS # (AUTO) 3.7 K/uL (1.8-8.9); PLATELET COUNT (AUTO) 259 K/uL (179-408); RED BLOOD CELL COUNT(AUTO) 4.73 MIL/uL (3.63-4.92); RED CELL DISTRIBUTION WIDTH 13.6 % (12.3-17.7); WHITE BLOOD COUNT (AUTO) 6.3 K/uL (3.8-11.8)
[2024-09-18] MEDS: FAMOTIDINE. 20 MG/2 ML VIAL IV ONE (17:28)
[2024-09-18] MEDS: METOCLOPRAMIDE HCL 10 MG/2 ML VIAL IV ONE (17:30)
[2024-09-18 17:38] LABS: DIFFERENTIAL COMMENT 1
[2024-09-18 17:40] LABS: *BLOOD, URINE TRACE (NEGATIVE); *COLOR,URINE LIGHT YELLOW (YELLOW); *URINE HCG, QUAL NEGATIVE (NEGATIVE)
[2024-09-18 17:44] LABS: CALCIUM 9.1 mg/dL (8.5-10.1); CREATININE 1.1 mg/dL (0.6-1.3); POTASSIUM 3.5 mmol/L (3.5-5.1)
[2024-09-18 17:45] LABS: BACTERIA,URINE NONE SEEN /HPF (NONE SEEN); RBC,URINE 0-3 /HPF (0-3); SQUAMOUS EPITHELIAL CELL,UR FEW /HPF (NONE SEEN); WBC,URINE NONE SEEN /HPF (0-3)
[2024-09-18 17:50] LABS: ALBUMIN 3.2 g/dL (3.4-5.0); BILIRUBIN,DIRECT 0.1 mg/dL (0.0-0.2); BILIRUBIN,TOTAL 0.5 mg/dL (0.2-1.0); TOTAL PROTEIN, SERUM 7.1 g/dL (6.4-8.2)
[2024-09-18] MEDS ORDERED: DIPH1TAB PO (18:03)
[2024-09-18] MEDS ORDERED: BENZ-13 PO (18:03)
[2024-09-18] MEDS ORDERED: AZIT500T4 PO (18:03)
[2024-09-18 18:16] VITALS: BP 120/70; O2SAT 96
== END 2024-09-18 18:22 | disposition home or self-care (01) ==
LOC: ER 16:55
DX: R19.7 Diarrhea, unspecified (principal); J20.9 Acute bronchitis, unspecified; R00.2 Palpitations; R10.9 Unspecified abdominal pain; R11.2 Nausea with vomiting, unspecified; E78.5 Hyperlipidemia, unspecified; I10 Essential (primary) hypertension; F41.9 Anxiety disorder, unspecified; Z79.899 Other long term (current) drug therapy; Z87.19 Personal history of other diseases of the digestive system; Z88.0 Allergy status to penicillin; Z88.1 Allergy status to other antibiotic agents; Z87.09 Personal history of other diseases of the respiratory system; Z87.2 Personal history of diseases of the skin and subcutaneous tissue; Z91.018 Allergy to other foods; Z91.09 Other allergy status, other than to drugs and biological substances
CPT/HCPCS: 99285; 96374; 71045; 96361; 96375; 80076; 80048; 81001; 84703; 83690; 85025; 36415; 93005; J1308; J2765; J7040; A4606; A4663

== ENCOUNTER 2024-11-27 17:10 | Emergency (ER) | payer MEDICARE, OTHER ==
[~2024-11-27] VITALS: Ht 162.6 cm; Wt 65.8 kg
[~2024-11-27 17:10] MED LIST changes: -ACET1TAB23 PO; +BENZ-13 PO; +BISM262O28 PO; +DIPH1TAB PO; -ONDA4TAB5 PO
[2024-11-27] MEDS ORDERED: FAMO40TA7 PO (17:46)
[2024-11-27] MEDS ORDERED: [UNRECOGNIZED DRUG - CODE] PO (17:46)
[2024-11-27] MEDS ORDERED: METH-806 (17:46)
[2024-11-27] MEDS ORDERED: OXYCODONE/APAP 5-325 MG TABLET ONE (17:53)
[2024-11-27 17:58] LABS: PLATELET COUNT (AUTO) 236 K/uL (179-408); RED BLOOD CELL COUNT(AUTO) 4.63 MIL/uL (3.63-4.92); RED CELL DISTRIBUTION WIDTH 13.8 % (12.3-17.7); WHITE BLOOD COUNT (AUTO) 4.8 K/uL (3.8-11.8)
[2024-11-27] MEDS: OXYCODONE/APAP 5-325 MG TABLET PO ONE (17:58)
[2024-11-27] MEDS: IV NORMAL SALINE 1000 ML BAG IV ONE (17:58)
[2024-11-27 18:05] LABS: CREATININE 0.7 mg/dL (0.6-1.3); SODIUM SERUM 138.0 mmol/L (136-145); UREA NITROGEN, BLOOD 15.0 mg/dL (7-18)
[2024-11-27 18:09] LABS: *BILIRUBIN,URIN NEGATIVE (NEGATIVE); *BLOOD, URINE NEGATIVE (NEGATIVE); *COLOR,URINE YELLOW (YELLOW); *KETONES,URINE NEGATIVE (NEGATIVE); *PROTEIN,URINE NEGATIVE (NEGATIVE); *UROBILINOGEN,URINE 0.2 E.U./dl (NORMAL); LEUKOCYTE ESTERASE ,URINE TRACE (NEGATIVE); NITRITE, URINE NEGATIVE (NEGATIVE); UGLUCOSE NEGATIVE (NEGATIVE)
[2024-11-27 18:10] LABS: *CLARITY,URINE HAZY (CLEAR)
[2024-11-27 18:10] LABS: ASPARTATE AMINOTRANSFERASE 18.0 U/L (15-37); TOTAL PROTEIN, SERUM 6.5 g/dL (6.4-8.2)
[2024-11-27 18:19] LABS: URINE AMORPHOUS PHOSPHATES MODERATE /HPF
[2024-11-27 18:22] VITALS: BP 159/74
[2024-11-27] MEDS ORDERED: IOHEXOL 300MG/ML 100 ML INFUS..BTL ONE (19:17)
[2024-11-27 22:44] VITALS: BP 155/77; O2SAT 97
== END 2024-11-27 22:45 | disposition home or self-care (01) ==
LOC: ER 17:10
DX: R10.12 Left upper quadrant pain (principal); R14.0 Abdominal distension (gaseous); F41.9 Anxiety disorder, unspecified; E78.5 Hyperlipidemia, unspecified; Z79.899 Other long term (current) drug therapy; Z87.19 Personal history of other diseases of the digestive system; Z88.0 Allergy status to penicillin; Z88.1 Allergy status to other antibiotic agents; Z87.09 Personal history of other diseases of the respiratory system; Z87.2 Personal history of diseases of the skin and subcutaneous tissue; Z88.8 Allergy status to other drugs, medicaments and biological substances
CPT/HCPCS: 99284; 74176; 96360; 80076; 80048; 81001; 85025; 87086; 36415; 93005; Q9967; J7040; A4606; A4663